=== PATIENT | male | born 1960 | race Asian ===

== ENCOUNTER 2020-05-27 03:37 | Inpatient (IN) | payer SELFPAY ==
[~2020-05-27] VITALS: Ht 167.6 cm; Wt 87.5 kg
[2020-05-27] MEDS ORDERED: MORPHINE SULFATE 4 MG/ML CPJ (NOT FOR IM USE) IV STA (06:04)
[2020-05-27] MEDS ORDERED: SODIUM CHLORIDE 0.9% 1,000 ML IV ONE (06:04)
[2020-05-27] MEDS ORDERED: ONDANSETRON HCL 4MG/2ML INJ IV STA (06:04)
[2020-05-27 06:24] LABS: HEMATOCRIT. 53.4 % (42.0-52.0); HEMOGLOBIN. 18.5 g/dL (14.0-18.0); MEAN CORPUSCULAR HEMOGLOBIN 32.1 pg (28.0-32.0); MEAN CORPUSCULAR VOLUME 92.8 fL (80.0-94.0); MEAN PLATELET VOLUME 8.4 fl (7.4-10.4); PLATELET 222 x1000/uL (130-400); RED BLOOD CELL COUNT 5.75 mill/uL (4.7-6.1); RED CELL DISTRIBUTION WIDTH 13.7 % (11.6-14.6)
[2020-05-27 06:30] LABS: CHLORIDE 114 mEq/L (98-107)
[2020-05-27 06:34] LABS: INR 1.1; PROTHROMBIN TIME 11.1 sec (9.6-11.0)
[2020-05-27 07:07] LABS: PLATELET ESTIMATE NORMAL
[2020-05-27] MEDS ORDERED: IOHEXOL-300 100 ML BOTTLE ONE (07:32)
[2020-05-27] MEDS ORDERED: MORPHINE SULFATE 4 MG/ML CPJ (NOT FOR IM USE) IV ONE (08:00)
[2020-05-27] MEDS ORDERED: METRONIDAZOLE 500 MG PREMIX 100 ML IV ONE (09:45)
[2020-05-27] MEDS ORDERED: CEFTRIAXONE 1 G PREMIX 50 ML IV ONE (09:45)
[2020-05-27 15:05] VITALS: BP 159/102
[2020-05-27 16:00] VITALS: BP 141/97
[2020-05-27] MEDS ORDERED: CLONIDINE 0.1MG TABLET PO PRN ×2 (16:30→19:45)
[2020-05-27] MEDS ORDERED: ACETAMINOPHEN 325MG TABLET PO PRN ×2 (16:30→19:45)
[2020-05-27] MEDS ORDERED: MORPHINE SULFATE 4 MG/ML CPJ (NOT FOR IM USE) IV PRN (16:30)
[2020-05-27] MEDS ORDERED: PNEUMOCOCCAL 23-VAL P-SAC VAC 0.5 ML IM ONE (16:45)
[2020-05-27] MEDS ORDERED: LORAZEPAM 0.5MG TABLET PO PRN (19:45)
[2020-05-27] MEDS ORDERED: ZOLPIDEM TARTRATE 5MG TABLET PO PRN (19:45)
[2020-05-27] MEDS ORDERED: DIPHENHYDRAMINE 50MG/ML VIAL IV PRN (19:45)
[2020-05-27 20:00] VITALS: BP 134/97
[2020-05-27] MEDS: PIPERACILLIN/TAZOBACTAM 3.375 G in DEXT 5% WATER 100 ML IV SCH (20:08)
[2020-05-27] MEDS ORDERED: PIPERACILLIN/TAZOBACTAM 3.375 G/VIAL IV SCH (22:00)
[2020-05-28] VITALS (7 sets, daily range): BP systolic 128–203; BP diastolic 90–130
[2020-05-28] MEDS: PIPERACILLIN/TAZOBACTAM 3.375 G in DEXT 5% WATER 100 ML IV SCH ×3 (04:07→21:34)
[2020-05-28 06:21] LABS: BASOPHILS % 0.3 % (0.0-2.0); EOSINOPHILS % 1.6 % (0.0-5.0); HEMATOCRIT. 48.7 % (42.0-52.0); HEMOGLOBIN. 16.8 g/dL (14.0-18.0); MEAN CORPUSCULAR HEMOGLOBIN 32.3 pg (28.0-32.0); MEAN CORPUSCULAR VOLUME 93.6 fL (80.0-94.0); MEAN PLATELET VOLUME 8.3 fl (7.4-10.4); MONOCYTES % 8.8 % (2.0-8.0); NEUTROPHILS % 66.3 % (40.0-76.0); PLATELET 188 x1000/uL (130-400); RED CELL DISTRIBUTION WIDTH 13.5 % (11.6-14.6)
[2020-05-28 06:42] LABS: CHLORIDE 107 mEq/L (98-107)
[2020-05-28] MEDS: ONDANSETRON HCL 4MG/2ML INJ IV PRN ×2 (14:58→21:34)
[2020-05-28] MEDS: ACETAMINOPHEN 325MG TABLET PO PRN (16:01)
[2020-05-28] MEDS: MORPHINE SULFATE 4 MG/ML CPJ (NOT FOR IM USE) IV PRN (21:37)
[2020-05-29] VITALS: BP 146/98
[2020-05-29] MEDS: DEXT 5%/0.45% NACL KCL 10MEQ/L 1,000 ML IV SCH ×3 (01:19→21:05)
[2020-05-29 04:00] VITALS: BP 156/102
[2020-05-29] MEDS: PIPERACILLIN/TAZOBACTAM 3.375 G in DEXT 5% WATER 100 ML IV SCH ×3 (04:08→20:42)
[2020-05-29] MEDS: MORPHINE SULFATE 4 MG/ML CPJ (NOT FOR IM USE) IV PRN (04:14)
[2020-05-29 07:27] LABS: BASOPHILS % 0.4 % (0.0-2.0); EOSINOPHILS % 1.1 % (0.0-5.0); HEMATOCRIT. 48.2 % (42.0-52.0); HEMOGLOBIN. 16.5 g/dL (14.0-18.0); LYMPHOCYTES % 19.7 % (20.0-50.0); MEAN CORPUSCULAR HEMOGLOBIN 32.1 pg (28.0-32.0); MEAN CORPUSCULAR VOLUME 93.8 fL (80.0-94.0); MEAN PLATELET VOLUME 8.4 fl (7.4-10.4); MONOCYTES % 9.3 % (2.0-8.0); NEUTROPHILS % 69.5 % (40.0-76.0); PLATELET 186 x1000/uL (130-400); RED BLOOD CELL COUNT 5.15 mill/uL (4.7-6.1); RED CELL DISTRIBUTION WIDTH 13.6 % (11.6-14.6)
[2020-05-29 07:59] LABS: CHLORIDE 106 mEq/L (98-107)
[2020-05-29 08:00] VITALS: BP 137/97
[2020-05-29 08:06] LABS: PHOSPHORUS 3.6 mg/dL (2.5-4.9)
[2020-05-29] MEDS: METRONIDAZOLE 500MG TABLET PO SCH ×2 (13:11→17:43)
[2020-05-29 20:00] VITALS: BP 134/94
[2020-05-30] MEDS: METRONIDAZOLE 500MG TABLET PO SCH ×4 (00:03→17:10)
[2020-05-30] MEDS: ACETAMINOPHEN 325MG TABLET PO PRN (00:05)
[2020-05-30 00:53] VITALS: BP 135/92
[2020-05-30] MEDS: PIPERACILLIN/TAZOBACTAM 3.375 G in DEXT 5% WATER 100 ML IV SCH ×3 (03:59→20:19)
[2020-05-30 04:00] VITALS: BP 144/98
[2020-05-30] MEDS: DEXT 5%/0.45% NACL KCL 10MEQ/L 1,000 ML IV SCH ×3 (06:31→21:21)
[2020-05-30 08:00] VITALS: BP 166/107
[2020-05-30] MEDS: ONDANSETRON HCL 4MG/2ML INJ IV PRN ×2 (09:32→17:12)
[2020-05-30] MEDS: MORPHINE SULFATE 4 MG/ML CPJ (NOT FOR IM USE) IV PRN ×2 (09:33→17:12)
[2020-05-30 12:00] VITALS: BP 151/99
[2020-05-30 16:00] VITALS: BP 153/109
[2020-05-30 20:00] VITALS: BP 143/102
[2020-05-31] VITALS: BP 146/101
[2020-05-31] MEDS: METRONIDAZOLE 500MG TABLET PO SCH ×5 (00:02→23:49)
[2020-05-31 04:00] VITALS: BP 157/103
[2020-05-31] MEDS: PIPERACILLIN/TAZOBACTAM 3.375 G in DEXT 5% WATER 100 ML IV SCH ×3 (04:18→19:54)
[2020-05-31] MEDS: ACETAMINOPHEN 325MG TABLET PO PRN (04:35)
[2020-05-31] MEDS: DEXT 5%/0.45% NACL KCL 10MEQ/L 1,000 ML IV SCH ×3 (06:21→23:50)
[2020-05-31 08:00] VITALS: BP 169/113
[2020-05-31] MEDS ORDERED: AMLODIPINE 5MG TABLET PO SCH (10:00)
[2020-05-31 12:00] VITALS: BP 142/96
[2020-05-31] MEDS: ONDANSETRON HCL 4MG/2ML INJ IV PRN (15:20)
[2020-05-31 16:00] VITALS: BP 133/84
[2020-05-31 20:00] VITALS: BP 148/97
[2020-05-31] MEDS: AMLODIPINE 5MG TABLET PO SCH (21:03)
[2020-06-01] VITALS: BP 153/96
[2020-06-01 04:00] VITALS: BP 148/102
[2020-06-01] MEDS: METRONIDAZOLE 500MG TABLET PO SCH ×2 (06:00→13:32)
[2020-06-01] MEDS: PIPERACILLIN/TAZOBACTAM 3.375 G in DEXT 5% WATER 100 ML IV SCH ×2 (06:00→12:03)
[2020-06-01 08:00] VITALS: BP 162/102
[2020-06-01] MEDS: AMLODIPINE 5MG TABLET PO SCH (08:25)
[2020-06-01 10:08] LABS: SACCHAROMYCES CEREVISIAE IGG 38.4 Units (0.0-24.9); SACCHAROMYCES CEREVISIAE IGM <20.0 Units (0.0-24.9)
[2020-06-01 10:20] VITALS: BP 133/72
[2020-06-01] MEDS ORDERED: BENAZEPRIL 10MG TABLET PO SCH (10:30)
[2020-06-01] MEDS: DEXT 5%/0.45% NACL KCL 10MEQ/L 1,000 ML IV SCH (10:32)
[2020-06-01 12:00] VITALS: BP 132/94
[2020-06-01 13:06] LABS: ATYPICAL pANCA <1:20 titer (Neg:<1:20)
[2020-06-01 15:10] VITALS: BP 132/94
== END 2020-06-01 16:00 | disposition home or self-care (01) | DRG 244 ==
LOC: ER 04:51 → ENRESERV 11:29 → 6WST 14:08
PROVIDERS: ADMIT Internal Medicine; ATTEND Internal Medicine
DX: K57.32 Diverticulitis of large intestine without perforation or abscess without bleeding (principal); E27.8 Other specified disorders of adrenal gland; I11.0 Hypertensive heart disease with heart failure; I25.10 Atherosclerotic heart disease of native coronary artery without angina pectoris; I50.9 Heart failure, unspecified; J98.11 Atelectasis; K40.90 Unilateral inguinal hernia, without obstruction or gangrene, not specified as recurrent; K80.64 Calculus of gallbladder and bile duct with chronic cholecystitis without obstruction; N28.1 Cyst of kidney, acquired; Z82.49 Family history of ischemic heart disease and other diseases of the circulatory system; Z87.891 Personal history of nicotine dependence; Z95.5 Presence of coronary angioplasty implant and graft
CPT/HCPCS: 36415; 71045; 74018; 74177; 76700; 76705; 80053; 82378; 83605; 83735; 84100; 84484; 85025; 86256; 86671; 90732; 93005; 99285; J0696; J2270; J2405; J2543; J3490; J7030; J7060; Q9967

== ENCOUNTER 2021-06-29 11:36 | Inpatient (IN) | payer MEDICAID ==
[~2021-06-29] VITALS: Ht 167.6 cm; Wt 82.2 kg
[2021-06-29] MEDS ORDERED: NITROGLYCERIN 0.4MG TABLET SL SL ONE (12:30)
[2021-06-29] MEDS ORDERED: ASPIRIN 325MG EC TABLET PO ONE (12:30)
[2021-06-29] MEDS ORDERED: FUROSEMIDE 20MG/2ML VIAL IVP ONE (12:30)
[2021-06-29 13:21] LABS: BASOPHILS % 0.5 % (0.0-2.0); EOSINOPHILS % 2.9 % (0.0-5.0); HEMATOCRIT. 49.7 % (42.0-52.0); HEMOGLOBIN. 16.6 g/dL (14.0-18.0); LYMPHOCYTES % 27.8 % (20.0-50.0); MEAN CORPUSCULAR HEMOGLOBIN 30.3 pg (28.0-32.0); MEAN CORPUSCULAR VOLUME 91.1 fL (80.0-94.0); MEAN PLATELET VOLUME 8.8 fl (7.4-10.4); MONOCYTES % 9.9 % (2.0-8.0); NEUTROPHILS % 58.9 % (40.0-76.0); PLATELET 191 x1000/uL (130-400); RED BLOOD CELL COUNT 5.46 mill/uL (4.7-6.1); RED CELL DISTRIBUTION WIDTH 15.9 % (11.6-14.6)
[2021-06-29 13:28] LABS: CHLORIDE 110 mEq/L (98-107)
[2021-06-29] MEDS ORDERED: NITROGLYCERIN 50MG PREMIX 250 ML IV ONE (16:45)
[2021-06-29] MEDS ORDERED: MORPHINE SULFATE 4 MG/ML CPJ (NOT FOR IM USE) IV ONE (16:45)
[2021-06-29] MEDS ORDERED: HEPARIN 5000 UNITS/ML VIAL IV PRN ×2 (17:00)
[2021-06-29] MEDS ORDERED: HEPARIN 5000 UNITS/ML VIAL IV SCH (17:00)
[2021-06-29] MEDS ORDERED: HEPARIN 25,000 UNITS PREMIX 250 ML IV PRN (17:00)
[2021-06-29] MEDS ORDERED: HEPARIN 60 UNITS/KG BOLUS IV SCH (18:30)
[2021-06-29] MEDS ORDERED: HEPARIN BOLUS PRN aPTT <30 IV (18:30)
[2021-06-29] MEDS ORDERED: HEPARIN 25,000 UNITS PREMIX 250 ML IV SCH (18:30)
[2021-06-29] MEDS ORDERED: HEPARIN BOLUS PRN aPTT 30-44 IV (18:30)
[2021-06-29] MEDS: CLONIDINE 0.1MG TABLET PO PRN (20:26)
[2021-06-30] MEDS ORDERED: ACETAMINOPHEN 325MG TABLET PO PRN (10:15)
[2021-06-30] MEDS ORDERED: ONDANSETRON HCL 4MG/2ML INJ IV PRN (10:15)
[2021-06-30] MEDS: LOSARTAN POTASSIUM 50 MG TABLET PO SCH (10:51)
[2021-06-30] MEDS: AMLODIPINE 10MG TABLET PO SCH (10:52)
[2021-06-30 20:26] VITALS: BP_SYST 127; BP_SYST 128; BP_DIAS 94; BP_DIAS 99
[2021-06-30] MEDS ORDERED: PNEUMOCOCCAL 23-VAL P-SAC VAC 0.5 ML IM ONE (21:45)
[2021-06-30] MEDS ORDERED: INFLUENZA VACCINE 05/PF 0.5 ML SYRINGE IM ONE (21:45)
[2021-06-30] MEDS: ENOXAPARIN 40MG/0.4ML SYR SUBCUT SCH (23:07)
[2021-06-30] MEDS: FUROSEMIDE 40MG/4ML VIAL IVP SCH (23:08)
[2021-07-01] VITALS: BP 121/84
[2021-07-01 04:00] VITALS: BP 133/81
[2021-07-01] MEDS: CLONIDINE 0.1MG TABLET PO PRN (05:32)
[2021-07-01 05:59] LABS: BASOPHILS % 0.4 % (0.0-2.0); EOSINOPHILS % 3.5 % (0.0-5.0); HEMATOCRIT. 51.3 % (42.0-52.0); HEMOGLOBIN. 17.2 g/dL (14.0-18.0); LYMPHOCYTES % 21.4 % (20.0-50.0); MEAN CORPUSCULAR HEMOGLOBIN 30.4 pg (28.0-32.0); MEAN CORPUSCULAR VOLUME 90.6 fL (80.0-94.0); MEAN PLATELET VOLUME 8.7 fl (7.4-10.4); MONOCYTES % 9.4 % (2.0-8.0); NEUTROPHILS % 65.3 % (40.0-76.0); PLATELET 180 x1000/uL (130-400); RED BLOOD CELL COUNT 5.66 mill/uL (4.7-6.1)
[2021-07-01 06:08] LABS: CHLORIDE 106 mEq/L (98-107)
[2021-07-01] MEDS: FUROSEMIDE 40MG/4ML VIAL IVP SCH ×2 (06:23→16:54)
[2021-07-01 08:00] VITALS: BP 104/78
[2021-07-01] MEDS: LOSARTAN POTASSIUM 50 MG TABLET PO SCH (08:17)
[2021-07-01] MEDS: AMLODIPINE 10MG TABLET PO SCH (08:18)
[2021-07-01 10:12] LABS: *AMPHETAMINES SCREEN URINE NEGATIVE (NEGATIVE); *BARBITURATES SCREEN URINE NEGATIVE (NEGATIVE); *BENZODIAZEPINES SCREEN URINE NEGATIVE (NEGATIVE); *COCAINE SCREEN URINE NEGATIVE (NEGATIVE); CANNABINOID URINE SCREEN PRESUMTIVE POSITIVE (NEGATIVE); METHADONE URINE SCREEN NEGATIVE (NEGATIVE); OPIATES URINE SCREEN NEGATIVE (NEGATIVE); PHENCYCLIDINE URINE SCREEN NEGATIVE (NEGATIVE)
[2021-07-01 12:00] VITALS: BP 118/91
[2021-07-01 12:42] LABS: CHLORIDE 103 mEq/L (98-107)
[2021-07-01 16:00] VITALS: BP 135/104
[2021-07-01] MEDS: ENOXAPARIN 40MG/0.4ML SYR SUBCUT SCH (16:54)
[2021-07-01 20:00] VITALS: BP 118/93
[2021-07-01] MEDS: CARVEDILOL 3.125 MG TABLET PO SCH (21:02)
[2021-07-02] VITALS (7 sets, daily range): BP systolic 91–125; BP diastolic 60–98
[2021-07-02] MEDS: FUROSEMIDE 40MG/4ML VIAL IVP SCH ×2 (06:15→17:08)
[2021-07-02] MEDS: CARVEDILOL 3.125 MG TABLET PO SCH ×2 (08:44→21:37)
[2021-07-02] MEDS: LOSARTAN POTASSIUM 50 MG TABLET PO SCH (08:44)
[2021-07-02] MEDS: AMLODIPINE 10MG TABLET PO SCH (08:48)
[2021-07-02 10:23] LABS: BASOPHILS % 0.4 % (0.0-2.0); EOSINOPHILS % 4.8 % (0.0-5.0); HEMATOCRIT. 52.7 % (42.0-52.0); HEMOGLOBIN. 17.5 g/dL (14.0-18.0); LYMPHOCYTES % 15.5 % (20.0-50.0); MEAN CORPUSCULAR HEMOGLOBIN 30.2 pg (28.0-32.0); MEAN CORPUSCULAR VOLUME 90.8 fL (80.0-94.0); MEAN PLATELET VOLUME 8.4 fl (7.4-10.4); MONOCYTES % 10.3 % (2.0-8.0); PLATELET 175 x1000/uL (130-400); RED CELL DISTRIBUTION WIDTH 16.2 % (11.6-14.6)
[2021-07-02] MEDS ORDERED: REGADENOSON 0.4 MG/5 ML IV ONE (10:45)
[2021-07-02] MEDS ORDERED: LOSA25TA3 PO (11:53)
[2021-07-02] MEDS ORDERED: FURO-151 MT (11:53)
[2021-07-02] MEDS ORDERED: POTA20TA82 MT (11:53)
[2021-07-02] MEDS ORDERED: COR3 PO (11:53)
[2021-07-02] MEDS: NITROGLYCERIN OINT 1GM/INCH UDPKT TD SCH ×2 (14:00→21:37)
[2021-07-02] MEDS: ENOXAPARIN 40MG/0.4ML SYR SUBCUT SCH (18:26)
[2021-07-03] VITALS: BP 111/83
[2021-07-03 04:00] VITALS: BP 122/90
[2021-07-03] MEDS: FUROSEMIDE 40MG/4ML VIAL IVP SCH (06:23)
[2021-07-03] MEDS: NITROGLYCERIN OINT 1GM/INCH UDPKT TD SCH ×2 (06:24→13:12)
[2021-07-03 07:53] LABS: CHLORIDE 101 mEq/L (98-107)
[2021-07-03 07:54] LABS: HEMATOCRIT. 51.7 % (42.0-52.0); HEMOGLOBIN. 16.9 g/dL (14.0-18.0); MEAN CORPUSCULAR HEMOGLOBIN 29.7 pg (28.0-32.0); MEAN PLATELET VOLUME 8.5 fl (7.4-10.4); PLATELET 171 x1000/uL (130-400); RED BLOOD CELL COUNT 5.68 mill/uL (4.7-6.1); RED CELL DISTRIBUTION WIDTH 16.1 % (11.6-14.6)
[2021-07-03 08:00] VITALS: BP 124/98
[2021-07-03] MEDS ORDERED: LOSARTAN POTASSIUM 25 MG TABLET PO SCH (09:00)
[2021-07-03] MEDS ORDERED: AMLODIPINE 5MG TABLET PO SCH (09:00)
[2021-07-03] MEDS ORDERED: POTASSIUM CHLORIDE 20MEQ TABLET SR PO SCH (09:00)
[2021-07-03] MEDS ORDERED: REGADENOSON 0.4 MG/5 ML IV ONE (09:54)
[2021-07-03 12:00] VITALS: BP 123/91
[2021-07-03] MEDS: CARVEDILOL 3.125 MG TABLET PO SCH (12:22)
[2021-07-03 13:47] VITALS: BP 123/91
[2021-07-03 22:26] LABS: PLATELET ESTIMATE NORMAL
== END 2021-07-03 14:00 | disposition home or self-care (01) | DRG 194 ==
LOC: ER 11:36 → MICUSO 16:39 → EDBEDREQSVC 16:51 → 8WST 06-30 17:56
PROVIDERS: ADMIT Internal Medicine; ATTEND Internal Medicine
DX: I11.0 Hypertensive heart disease with heart failure (principal); R65.11 Systemic inflammatory response syndrome (SIRS) of non-infectious origin with acute organ dysfunction; I42.9 Cardiomyopathy, unspecified; E44.1 Mild protein-calorie malnutrition; E87.8 Other disorders of electrolyte and fluid balance, not elsewhere classified; I25.10 Atherosclerotic heart disease of native coronary artery without angina pectoris; I50.23 Acute on chronic systolic (congestive) heart failure; D72.819 Decreased white blood cell count, unspecified; K57.30 Diverticulosis of large intestine without perforation or abscess without bleeding; E78.5 Hyperlipidemia, unspecified; I25.2 Old myocardial infarction; Z91.19 Patient's noncompliance with other medical treatment and regimen; Z95.5 Presence of coronary angioplasty implant and graft; Z68.29 Body mass index [BMI] 29.0-29.9, adult; Z86.74 Personal history of sudden cardiac arrest; Z87.891 Personal history of nicotine dependence
CPT/HCPCS: 36415; 71045; 78452; 80048; 80053; 80305; 83735; 83880; 84484; 85025; 90686; 93005; 93017; 93306; 99291; A9500; J1644; J1650; J1940; J2270; J2785; J3490; J7040